=== PATIENT | male | born 1990 | race African-American/Black ===

== ENCOUNTER 2023-02-15 12:02 | Emergency (ER) | payer SELFPAY ==
[2023-02-15 12:16] VITALS: BP 145/80; PULSE 117; RESP 16; TEMP 36.4; O2SAT 97; BMI 29.1
--- NOTE | 2023-02-15 12:48 | ED.GENADULT ---
HPI - General Adult General Date Seen: 02/15/23 Chief complaint: Nausea/Vomiting Stated complaint: Hands swelling, cramping Time Seen by Provider: 02/15/23 12:20 Source: patient Mode of arrival: ambulatory Limitations: no limitations History of Present Illness HPI narrative: Patient is a 32-year-old male with no significant past medical history who presents for hand cramping, lightheadedness and vomiting. He says he was at work, he was putting some cones out, works construction, and he felt like his hands were getting cold so he got into the truck. 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 As he has been in the ER hands are starting to feel better, he is feeling less lightheaded, is not diaphoretic here but his shirt is very sweaty. He says he was feeling nauseated when he went to work today so he was drinking lots of water because he thought he might vomit, and then on arrival to the ER he did vomit once. He no longer feels nauseated. He denies abdominal pain, diarrhea, fevers, difficulty breathing, chest pain or history of syncope. He does smoke, denies any substance use or alcohol use. Related Data Home Medications Medication Instructions Recorded Confirmed No Known Home Medications 02/15/23 02/15/23 Allergies Allergy/AdvReac Type Severity Reaction Status Date / Time bees Allergy Severe Uncoded 02/15/23 12:16 Review of Systems Status of ROS: Reports: 10 or more systems reviewed and unremarkable except as noted in History and below [facility] Social History Smoking Status: Never smoker How often do you have a drink containing alcohol: never AUDIT-C Alcohol total score: 0 Non-prescribed substance use: denies use Exam Narrative: Exam Narrative: Vital signs as noted above. In general, an alert, well-appearing patient. Conversant, breathing easily. Head: Normocephalic, atraumatic. Eyes: Pupils are equal reactive. Extraocular movements are full. Conjunctivae are normal. ENT: Mucous membranes are moist. Neck: Supple without lymphadenopathy. Heart: Regular rate and rhythm. No murmur or rub. Lungs: Clear bilaterally. No increased work of breathing, crackles or wheezes. Abdomen: Soft and nontender. No organomegaly. Extremities: Well perfused. No edema. No calf tenderness. Pulses intact. Hands at this time look relatively normal without significant spasm. Neurologic: Patient is alert and oriented to person and place. Speech is fluent. Face is symmetric. Moves all extremities equally. Affect: Anxious. Skin: Currently warm and dry, the front of his shirt is soaked in sweat. Const: Vital Signs, click to edit/add: Vital Signs - 24 hr 02/15/23 12:16 02/15/23 13:53 02/15/23 13:54 Temperature 97.5 F L Pulse Rate 118 H 115 H Pulse Rate [Right Pulse Oximeter] 117 H Respiratory Rate 16 14 Blood Pressure 147/83 H Blood Pressure [Ri ght Upper Arm] 145/80 H Pulse Oximetry 97 98 97 02/15/23 16:10 02/15/23 16:12 Temperature 97.5 F L Pulse Rate 109 H Pulse Rate [Right Pulse Oximeter] 109 H Respiratory Rate 14 12 Blood Pressure 137/89 Blood Pressure [Ri ght Upper Arm] 128/77 Pulse Oximetry 99 Documenting provider has reviewed patient's vital signs: yes Course Course ED Course: Discussed with him that hands are likely a result of carpal pedal spasm secondary to hyperventilation. The episode in the truck where he felt hot and lightheaded as well as nauseated may have been a vagal spell, but will do an EKG and some labs to look for any evidence of acute coronary syndrome, infection, metabolic derangement. I am going to give him some fluids here IV as well as 1 mg of Ativan. Patient rested comfortably here for a while. He had his L of fluid. He does remain persistently tachycardic, heart rate on his EKG was 105, sinus tachycardia. Normal for age. His blood pressure remains stable, O2 sats are normal on room air. His labs are notable for a mildly elevated white blood cell count of 13.6, hemoglobin of 14.4 and 90% neutrophils. Metabolic panel was notable for a potassium of 3, he was given 50 mEq of potassium here and I have encouraged potassium rich foods at home its. He is not on any medications which would contribute to hypokalemia, this may be a result of vomiting. His troponin is 0. I checked a D-dimer as well given persistent tachycardia and this episode of lightheadedness. His D-dimer is mildly elevated at 0.8. I had ordered a chest x-ray to evaluate for possible pneumonia, he does seem to have a cough here. He declined a chest x-ray. I discussed the D-dimer with him, that we use this to screen for possible PE and in the presence of an abnormal D-dimer a CT scan is the only way to rule that diagnosis out. He declines that test at this time. He understands that in the absence of that test I am not able to completely rule out the diagnosis of pulmonary embolism. He does not have specific risk factors for that disease, again does not have any chest symptoms or hypoxia. I have stressed that if he develops any new symptoms such as chest pain, shortness of breath, fainting, fever, coughing up blood he needs to return to the emergency department and he assures me he will do so. He says he just does not want to stay here any longer and also is concerned about the expense of a CT scan. His hands are feeling better. He has developed a little bit of a headache and I gave him some Tylenol. He otherwise says he is feeling improved and would like to go home. I would recommend primary care follow-up in the next week for reassessment of tachycardia, hypokalemia and any persistent symptoms. While not likely, I think the diagnosis of pheochromocytoma needs to be considered as well given his headache, tachycardia, and sweating on presentation. Vital Signs Vital signs: Initial Vital Signs Temperature 97.5 F L 02/15/23 12:16 Temperature Source Temporal Artery Scan 02/15/23 12:16 Pulse Rate 117 H 02/15/23 12:16 Respiratory Rate 16 02/15/23 12:16 Blood Pressure 145/80 H 02/15/23 12:16 Blood Pressure Mean 101 02/15/23 12:16 Blood Pressure Position Sitting 02/15/23 12:16 Pulse Oximetry 97 02/15/23 12:16 Vital Signs Temperature 97.5 F L 02/15/23 12:16 Pulse Rate 117 H 02/15/23 12:16 Respiratory Rate 16 02/15/23 12:16 Blood Pressure 145/80 H 02/15/23 12:16 Pulse Oximetry 97 02/15/23 12:16 Temperature 97.5 F L 02/15/23 16:10 Pulse Rate 109 H 02/15/23 16:12 Respiratory Rate 12 02/15/23 16:12 Blood Pressure 137/89 02/15/23 16:12 Pulse Oximetry 99 02/15/23 16:12 Medical Decision Making Lab Data Labs: Lab Results 02/15/23 02/15/23 02/15/23 Range/Units 12:29 12:45 14:10 WBC 13.57 H (4.50-11.00) K/uL RBC 4.94 (4.30-5.90) m/uL Hgb 14.4 (13.5-17.5) gm/dL Hct 42.6 (37.0-53.0) % MCV 86 (80-100) fL MCH 29 (26-34) pg MCHC 34 (32-36) gm/dL RDW Coeff of Cely 11.6 (11.5-15.5) % Plt Count 211 (140-440) K/uL Neut % (Auto) 89.9 H (42.0-72.0) % Lymph % (Auto) 4.4 L (20-44) % [place] % (Auto) 5.1 (0.0-11.0) % Eos % (Auto) 0.0 (0.0-7.0) % Baso % (Auto) 0.2 (0.0-3.0) % Neut # (Auto) 12.20 H (1.7-7.0) K/uL Lymph # (Auto) 0.60 L (0.90-2.90) K/uL [place] # (Auto) 0.70 (0.00-0.90) K/UL Eos # (Auto) 0.00 (0.00-0.50) K/uL Baso # (Auto) 0.00 (0.00-0.30) K/uL Abs Immat Gran (auto) 0.10 (0.00-0.30) K/uL Imm/Tot Granulo (auto) 0.4 % D-Dimer Quant (PE/DVT) 0.81 H (0.00-0.50) ug/ml Sodium 135 (135-149) mmol/L Potassium 3.0 L (3.6-5.1) mmol/L Chloride 100 (96-114) mmol/L Carbon Dioxide 23 (20-32) mmol/L Anion Gap 12 (7-15) mEq/L BUN 10 (5-24) mg/dL Creatinine 0.8 (0.5-1.5) mg/dL Estimated Creat Clear 136.88 Estimated GFR 121 ml/min Glucose 121 H (60-115) mg/dL Lactate (0.5-1.9) mmol/L Calcium 8.8 (8.4-10.6) mg/dL Total Bilirubin 0.7 (0.1-1.5) mg/dL Direct Bilirubin 0.0 (0.0-0.5) mg/dL AST 44 H (12-35) U/L ALT 21 (4-50) U/L Alkaline Phosphatase 76 (40-150) U/L C-Reactive Protein 2.8 H (0.5-1.0) mg/dL Total Protein 8.4 H (6.0-8.3) g/dL Albumin 4.6 (3.3-5.0) g/dL Urine Opiates Screen Negative (Negative) Ur Oxycodone Screen Negative (Negative) Urine Methadone Screen Negative (Negative) Ur Propoxyphene Screen Negative (Negative) Ur Barbiturates Screen Negative (Negative) U Tricyclic Antidepress Negative (Negative) Ur Phencyclidine Scrn Negative (Negative) Ur Amphetamines Screen Negative (Negative) U Methamphetamines Scrn Negative (Negative) U Benzodiazepines Scrn Negative (Negative) Urine Cocaine Screen Negative (Negative) U Marijuana (THC) Screen POSITIVE A (Negative) Ur Drug Screen Comment See Note POC Troponin I 0.00 L (0.01-0.04) ng/ml 02/15/23 Range/Units 14:31 WBC (4.50-11.00) K/uL RBC (4.30-5.90) m/uL Hgb (13.5-17.5) gm/dL Hct (37.0-53.0) % MCV (80-100) fL MCH (26-34) pg MCHC (32-36) gm/dL RDW Coeff of Cely (11.5-15.5) % Plt Count (140-440) K/uL Neut % (Auto) (42.0-72.0) % Lymph % (Auto) (20-44) % [place] % (Auto) (0.0-11.0) % Eos % (Auto) (0.0-7.0) % Baso % (Auto) (0.0-3.0) % Neut # (Auto) (1.7-7.0) K/uL Lymph # (Auto) (0.90-2.90) K/uL [place] # (Auto) (0.00-0.90) K/UL Eos # (Auto) (0.00-0.50) K/uL Baso # (Auto) (0.00-0.30) K/uL Abs Immat Gran (auto) (0.00-0.30) K/uL Imm/Tot Granulo (auto) % D-Dimer Quant (PE/DVT) (0.00-0.50) ug/ml Sodium (135-149) mmol/L Potassium (3.6-5.1) mmol/L Chloride (96-114) mmol/L Carbon Dioxide (20-32) mmol/L Anion Gap (7-15) mEq/L BUN (5-24) mg/dL Creatinine (0.5-1.5) mg/dL Estimated Creat Clear Estimated GFR ml/min Glucose (60-115) mg/dL Lactate 0.7 (0.5-1.9) mmol/L Calcium (8.4-10.6) mg/dL Total Bilirubin (0.1-1.5) mg/dL Direct Bilirubin (0.0-0.5) mg/dL AST (12-35) U/L ALT (4-50) U/L Alkaline Phosphatase (40-150) U/L C-Reactive Protein (0.5-1.0) mg/dL Total Protein (6.0-8.3) g/dL Albumin (3.3-5.0) g/dL Urine Opiates Screen (Negative) Ur Oxycodone Screen (Negative) Urine Methadone Screen (Negative) Ur Propoxyphene Screen (Negative) Ur Barbiturates Screen (Negative) U Tricyclic Antidepress (Negative) Ur Phencyclidine Scrn (Negative) Ur Amphetamines Screen (Negative) U Methamphetamines Scrn (Negative) U Benzodiazepines Scrn (Negative) Urine Cocaine Screen (Negative) U Marijuana (THC) Screen (Negative) Ur Drug Screen Comment POC Troponin I (0.01-0.04) ng/ml Discharge Plan Discharge Clinical Impression: Carpopedal spasm, Tachycardia, Hypokalemia Patient Disposition: Home, Self-Care Condition: Improved Instructions: Atrial Tachycardia (DC), Carpopedal Spasm (ED) Additional Instructions: I would recommend that you be seen by somebody in clinic for follow-up in the next week or so for reassessment of your heart rate and recheck if any symptoms, as well as recheck of your potassium. Diagnosis of pheochromocytoma could be considered. Try to eat potassium rich foods over the next week or so. These include potatoes, bananas, spinach among others. If at any time you develop new symptoms such as fever, chest pain, shortness of breath, fainting etcetera he should come back to the emergency department, given that we have elected not to do a CT scan today to evaluate for possible causes of your elevated D-dimer. Prescriptions: No Action No Known Home Medications Follow Up/Referrals: Provider,Not a Local [Primary Care Provider] - Stand Alone Forms: [employer] Info Instructions
[2023-02-15] MEDS: 0.9 % SODIUM CHLORIDE 1000 ml 1,000 ML IV (12:55)
[2023-02-15] MEDS: LORazepam 2 MG/ML inj 1 MG IVP (12:57)
[2023-02-15 13:04] LABS: Basophils Percent Auto 0.2 % (0.0-3.0); Hematocrit 42.6 % (37.0-53.0); Hemoglobin* 14.4 gm/dL (13.5-17.5); Immature Granulocytes Pct Auto 0.4 %; Lymphocytes Percent Auto 4.4 % (20-44); Mean Corpuscular HGB Conc 34 gm/dL (32-36); Mean Corpuscular Hemoglobin 29 pg (26-34); Mean Corpuscular Volume 86 fL (80-100); Monocytes Percent Auto 5.1 % (0.0-11.0); Neutrophils Percent Auto 89.9 % (42.0-72.0); Platelet Count* 211 K/uL (140-440); RDW Coefficient of Variation % 11.6 % (11.5-15.5); Red Blood Count 4.94 m/uL (4.30-5.90); White Blood Count* 13.57 K/uL (4.50-11.00)
[2023-02-15 13:06] LABS: Slide Review Reflex No
[2023-02-15 13:31] LABS: Albumin* 4.6 g/dL (3.3-5.0); Chloride* 100 mmol/L (96-114)
[2023-02-15 13:32] LABS: Sodium* 135 mmol/L (135-149)
[2023-02-15 13:34] LABS: Creatinine* 0.8 mg/dL (0.5-1.5); Est. Creatinine Clearance* 136.88; Estimated Glomerular Filt Rate 121 ml/min
[2023-02-15 13:35] LABS: Alanine Aminotransferase* 21 U/L (4-50); Alkaline Phosphatase* 76 U/L (40-150); Anion Gap 12 mEq/L (7-15); Aspartate Amino Transferase* 44 U/L (12-35); Bilirubin Total* 0.7 mg/dL (0.1-1.5); Blood Urea Nitrogen* 10 mg/dL (5-24); Calcium* 8.8 mg/dL (8.4-10.6); Carbon Dioxide* 23 mmol/L (20-32); Glucose* 121 mg/dL (60-115); Total Protein* 8.4 g/dL (6.0-8.3)
[2023-02-15 13:38] LABS: C Reactive Protein* 2.8 mg/dL (0.5-1.0)
[2023-02-15 13:53] VITALS: BP 147/83; PULSE 118; RESP 14; O2SAT 98
[2023-02-15 13:54] VITALS: PULSE 115; O2SAT 97
[2023-02-15] MEDS: POTASSIUM BICARB 25 MEQ EFFERVESCENT TAB 50 MEQ PO (14:24)
[2023-02-15 14:28] LABS: Amphetamine Screen Urine Negative (Negative); Barbiturate Screen Urine Negative (Negative); Benzodiazepines Screen Urine Negative (Negative); Cannabinoid Screen Urine POSITIVE (Negative); Cocaine Screen Urine Negative (Negative); Methadone Screen Urine Negative (Negative); Methamphetamines Screen Urine Negative (Negative); Opiate Screen Urine Negative (Negative); Oxycodone Screen Urine Negative (Negative); Phencyclidine Screen Urine Negative (Negative); Tricyclic Antidepressant Urine Negative (Negative)
[2023-02-15 14:36] LABS: Lactate* 0.7 mmol/L (0.5-1.9)
--- NOTE | 2023-02-15 14:39 | ED.NURSE ---
Pt declines xray. notified.
[2023-02-15 15:37] LABS: D Dimer Quantitative* 0.81 ug/ml (0.00-0.50)
[2023-02-15] MEDS: ACETAMINOPHEN 500 MG TABLET 1000 MG PO (16:07)
[2023-02-15 16:10] VITALS: BP 128/77; PULSE 109; RESP 14; TEMP 36.4
--- NOTE | 2023-02-15 16:11 | ED.NURSE ---
Pt reports ENCISO, Tylenol given as ordered.
[2023-02-15 16:12] VITALS: BP 137/89; PULSE 109; RESP 12; O2SAT 99
== END 2023-02-15 16:11 | disposition home or self-care (01) ==
PROVIDERS: Emergency Provider Emergency Medicine
DX: R29.0 Tetany (principal); R00.0 Tachycardia, unspecified; E87.6 Hypokalemia
CPT/HCPCS: 36415; 80048; 80076; 80306; 83605; 84484; 85025; 85379; 86140; 93005; 96374; 99284; A9270; J2060; J7030